=== PATIENT | female | born 1970 | race Caucasian/White ===

== ENCOUNTER 2021-09-22 08:48 | Inpatient (IN) | payer OTHER ==
[~2021-09-22] VITALS: Ht 162.6 cm; Wt 79.4 kg
[2021-09-22] MEDS ORDERED: NORETHINDRONE AC5 MG PO (09:33)
[2021-09-22] MEDS ORDERED: MAXFE PO (09:35)
[2021-09-22] MEDS ORDERED: MEDROXYPRO150 MG/11 IM (09:35)
[2021-09-24] MEDS ORDERED: PERCOCET 5-3251 EACH PO (07:58)
[2021-09-24] MEDS ORDERED: IBU800 MG PO (07:58)
[2021-09-24] MEDS ORDERED: CIPRO500 MG PO (07:58)
== END 2021-09-24 16:39 | disposition home or self-care (01) | DRG 742 ==
LOC: ER 08:48 → O/R 13:49 → OB/GYN 13:49 → SEC-K 13:49 → O/R 14:03 → OB/GYN 17:13
PROVIDERS: ADMIT Obstetrics & Gynecology Gynecology; ATTEND Obstetrics & Gynecology Gynecology
PROC: 0UT70ZZ Resection of Bilateral Fallopian Tubes, Open Approach (ICD-10-PCS; 2021-09-22)
PROC: 0UT90ZZ Resection of Uterus, Open Approach (ICD-10-PCS; principal; 2021-09-22 14:00)
PROC: 30233N1 Transfusion of Nonautologous Red Blood Cells into Peripheral Vein, Percutaneous Approach (ICD-10-PCS; 2021-09-23)
DX: D25.1 Intramural leiomyoma of uterus (principal); D62 Acute posthemorrhagic anemia; D25.2 Subserosal leiomyoma of uterus; N80.0 Endometriosis of uterus; N72 Inflammatory disease of cervix uteri; Z20.822 Contact with and (suspected) exposure to COVID-19